=== PATIENT | female | born 1965 | race Caucasian/White ===

== ENCOUNTER 2022-10-18 08:05 | Day surgery (SDC) | payer OTHER ==
[~2022-10-18] VITALS: Ht 154.9 cm; Wt 78.0 kg
[2022-10-18] MEDS ORDERED: LIDOCAINE 2% 100 MG/5 ML UJET TP ONE (09:34)
[2022-10-18] MEDS ORDERED: MIDAZOLAM 5 MG/5 ML VIAL ONE (09:34)
[2022-10-18] MEDS ORDERED: fentaNYL citrate 0.05 MG/ML VIAL ONE (09:34)
[2022-10-19] MEDS ORDERED: fentaNYL citrate 0.05 MG/ML VIAL IVP ONE (09:25)
[2022-10-19] MEDS ORDERED: MIDAZOLAM 2 MG/2 ML VIAL IVP ONE (09:25)
[2022-10-19] MEDS ORDERED: LIDOCAINE 2% 100 MG/5 ML UJET TP ONE (09:25)
== END 2022-10-18 11:25 | disposition home or self-care (01) ==
LOC: MMU 08:05 → MDS 08:05
PROVIDERS: ATTEND Internal Medicine Gastroenterology
DX: Z12.11 Encounter for screening for malignant neoplasm of colon (principal); K21.9 Gastro-esophageal reflux disease without esophagitis; E78.5 Hyperlipidemia, unspecified; K22.10 Ulcer of esophagus without bleeding; Z80.0 Family history of malignant neoplasm of digestive organs; Z98.890 Other specified postprocedural states; Z79.899 Other long term (current) drug therapy
CPT/HCPCS: 36415; 43239; 45378; 86677; J2250; J3010; J7030